=== PATIENT | female | born 2000 | race African-American/Black ===

== ENCOUNTER 2018-12-02 22:54 | Emergency (ER) | payer MEDICARE ==
[~2018-12-02] VITALS: Ht 170.2 cm; Wt 99.8 kg
[2018-12-02] MEDS ORDERED: PROMETHAZINE HCL 25 MG TAB PO STA (23:44)
[2018-12-02] MEDS ORDERED: ACETAMINOPHEN 325 MG TAB PO ONE (23:45)
== END 2018-12-03 00:27 | disposition home or self-care (01) ==
LOC: FSED 22:54
DX: R11.2 Nausea with vomiting, unspecified (principal); G44.219 Episodic tension-type headache, not intractable; Z33.1 Pregnant state, incidental
CPT/HCPCS: 80053; 81003; 81025; 85025; 99283